=== PATIENT | female | born 1955 | race Caucasian/White ===

== ENCOUNTER → 2017-06-10 | Outpatient (CLI) | payer OTHER ==
[~2017-06-10] MED LIST: CLIMARA1 PATCH.WK TD; Climara Pro Pa1 EACH TD; Excedrin Extra1 EACH PO; IBUP400 PO; MONT4; SALONPAS PATCH1 EACH; Sudogest30 MG PO
[2017-06-11 05:15] LABS: Source Cervix
== END | disposition home or self-care (01) ==
LOC: LAB SHORT 10:32 → LAB 10:32
PROVIDERS: Nurse Practitioner
DX: Z01.419 Encounter for gynecological examination (general) (routine) without abnormal findings (principal)
CPT/HCPCS: G0145

== ENCOUNTER → 2018-08-05 | Outpatient (CLI) | payer OTHER | END | disposition home or self-care (01) | LOC: LAB SHORT 09:37 → LAB 09:37 | PROVIDERS: Nurse Practitioner | DX: Z01.419 Encounter for gynecological examination (general) (routine) without abnormal findings (principal) | CPT/HCPCS: G0145 ==

== ENCOUNTER 2022-10-23 12:19 | Day surgery (SDC) | payer MEDICARE ==
[~2022-10-23] VITALS: Ht 157.5 cm; Wt 74.1 kg
[2022-10-23] MEDS ORDERED: VERA180ERB PO (12:40)
[2022-10-23] MEDS ORDERED: SUMA25 PO (12:41)
[2022-10-23 14:07] VITALS: BP 116/77
--- NOTE | 2022-10-23 14:38 | NUR ---
10/23/22 1438 Darshana Colvin IV REMOVED WITHOUT ISSUE. PT TOLERATED WELL @2676.
== END 2022-10-23 14:37 | disposition home or self-care (01) ==
LOC: ORSCSDS 12:19
PROVIDERS: Otolaryngology
PROC: 0JB50ZX Excision of Left Neck Subcutaneous Tissue and Fascia, Open Approach, Diagnostic (ICD-10-PCS; principal; 2022-10-23 13:30)
DX: D17.0 Benign lipomatous neoplasm of skin and subcutaneous tissue of head, face and neck (principal); Z79.899 Other long term (current) drug therapy
CPT/HCPCS: 88304; J0690; J2250; J2704; J3010

== ENCOUNTER 2024-02-07 07:08 | Day surgery (SDC) | payer MEDICARE ==
[~2024-02-07] VITALS: Ht 157.5 cm; Wt 97.3 kg
[~2024-02-07 07:08] MED LIST changes: +Dexamethasone Sod Phos 10 MG/ML 1ML VIAL ONE; +FentaNYL Citrate 50 MCG/ML 2 ML Injection ONE; +Ketorolac Tromethamine 30mg Vial ONE; +Ondansetron HCl 2 MG / ML 2ML Vial ONE; +SUMA25 PO; +VERA180ERB PO; +propofoL 20 ML IV ONE
[2024-02-07] MEDS ORDERED: CeFAZolin Sodium 2,000 MG VIAL ONE (07:14)
[2024-02-07] MEDS ORDERED: NS 50 ML IV ONE (07:14)
[2024-02-07] MEDS ORDERED: Lactated Ringer's 1,000 ML IV ONE (07:43)
--- NOTE | 2024-02-07 08:49 | NUR ---
02/07/24 0849 Nitza Baez 0.15ML OF EPI (1MG/ML) MIXED AND VERIFIED WITH 30ML ROPIVACAINE 0.5% TO MAKE ROPIVACAINE 0.5% WITH EPI 1:200,000 FOR INJECTION AT [facility].
[2024-02-07] MEDS ORDERED: EPINEPhrine HCl 1 MG/ML 1ML Amp XX ONE (09:00)
[2024-02-07] MEDS ORDERED: Ropivacaine 0.5% HCl/Pf 5 MG/ML 20ML VIAL INJ ONE (09:00)
[2024-02-07] MEDS ORDERED: FentaNYL Citrate 50 MCG/ML 2 ML Injection ONE (10:01)
[2024-02-07 10:20] VITALS: BP 121/94
[2024-02-07] MEDS ORDERED: HYDROcodone 5-APAP 325 TAB ONE (10:44)
== END 2024-02-07 11:30 | disposition home or self-care (01) ==
LOC: ORSCSDS 07:08
PROVIDERS: Podiatrist Foot & Ankle Surgery
PROC: 0SGL04Z Fusion of Left Tarsometatarsal Joint with Internal Fixation Device, Open Approach (ICD-10-PCS; principal; 2024-02-07 08:30)
PROC: 0QSR04Z Reposition Left Toe Phalanx with Internal Fixation Device, Open Approach (ICD-10-PCS; principal; 2024-02-07 08:30)
DX: M21.612 Bunion of left foot (principal); Z96.641 Presence of right artificial hip joint; Z79.899 Other long term (current) drug therapy
CPT/HCPCS: A9270; C1713; J0171; J0690; J1100; J1885; J2405; J2704; J2795; J3010; J7120